=== PATIENT | male | born 1935 | race Caucasian/White ===

== ENCOUNTER 2018-06-18 05:50 | Inpatient (IN) | payer MEDICARE, OTHER, SELFPAY ==
[2018-06-12 09:48] VITALS: BMI 29.2
[2018-06-18] VITALS (16 sets, daily range): BP systolic 114–166; BP diastolic 47–87; PULSE 76–109; RESP 8–18; TEMP 36.3–37.4; O2SAT 92–98; BMI 28.0
[2018-06-18] MEDS: LACTATED RINGERS 1,000 ML 42 ML IV ×2 (07:10→09:45)
--- NOTE | 2018-06-18 07:26 | PM.PREOP ---
Pre-operative Note Interval Note History & Physical reviewed/Exam performed by Physician: Yes Changes to H&P: No
--- NOTE | 2018-06-18 07:28 | PM.OP.1 ---
Operative Date/Time/Diagnoses Date of procedure: 06/18/18 Time of procedure: 11:35 Pre-op diagnosis: Lumbar stenosis with radiculopathy Lumbar scoliosis Post-op diagnosis: same Procedure & Clinicians Procedure: L4-5, L5S1 TLIF (post/post interbody fusion) with cages L4, L5, S1 screws icbg aspirate L45, L5S1 laminectomies use of microscope placement of epidural catheter Same procedure as scheduled: Yes Indications: [age] year old male with intractable pain from stenosis. They had failed conservative management and requested operative intervention. Risks and benefits of surgery were discussed and appropriate consents were obtained. Surgeon: Chris Calabrese [employer] Technician: Ashely Larson Anesthesia Type: General Operative Notes Findings: None Closure Type: primary Specimen(s): none sent Prosthetic devices, grafts, tissues, transplants, or devices: NuVasive MAS reline screws Globus Rise cage Applied: catheter Estimated Blood Loss (mL): 50 Procedure in detail: The patient was brought to the operating room and intubated on the table. A time-out was performed. They were then rolled over to the well-padded Miguel Angel table in the prone position. Preoperative antibiotics were given. The back was prepped and draped in the standard sterile fashion. Using fluoroscopy, a 5 cm longitudinal incision was made to the right of the midline. We used Bovie to come down to and split the lumbodorsal fascia. Using fluoroscopy and monitoring, we then percutaneously placed Jamshidi needles down the pedicles of L4, L5, and S1 on the right side. These were changed out to guidewires and then we tapped and then placed the NuVasive MAS Reline screw shanks. We then opened up the retractors at L5 and S1 and used Bovie to clear up the posterolateral gutter as well as medially along the lamina to the spinous processes. A bur was used to decorticate the transverse processes. We brought in the microscope. Using a combination of bur and Kerrison rongeurs, a L5-S1 laminectomy was performed from the right side. We cleared over past the midline and carefully depressed the dura until we were able to decompress the opposite side. We cleared out the neural foramen, which required a near complete facetectomy. This completed the laminectomy at L5-S1. We then began the TLIF prep. A complete facetectomy was performed on this side at L5-S1. We carefully cleaned up the remainder of the foramen until we could easily retract the exiting root as well as clearing medially below the dura and expose the disc space. The disc was prepped with bipolar and then an annulotomy was performed. We performed a diskectomy using a combination of paddles, david, pituitaries, and curettes. We distracted the disc using a paddle and locked the retractor in an open position. We then filled the disc space with Osteocel bone graft. We then placed the globus Rise cage under fluoroscopy and then filled this in with more bone graft. The distraction on the retractor was released to compress down. This completed the posterior interbody fusion portion of the TLIF at L5-S1. We then took off our retractor blade at S1 and moved to L4. We opened up the retractor and cleared out the gutter as well as medially to expose the lamina. The L4 transverse process was also decorticated with a bur. We then used a bur and Kerrison rongeur to perform a right-sided laminectomy at L4-5. We reached across carefully depress the dura and cleared past the midline. We cleared out the foramen, which required a near complete facetectomy. As we worked around the facet, it appeared that we propagated a fracture line that went down into the L5 pedicle. We checked around all the way with a ball probe and it did not seem to come out through the other side and was contained. We then began the interbody work. The dura was carefully retracted. The disc was prepped with bipolar. We then performed an annulotomy. Complete diskectomy was performed at L4-5 with David, paddles, pituitaries, curets. We filled the disc space with bone graft. We then placed and expanded the globus Rise cage under fluoroscopy. More bone graft was packed around this. The distraction on the retractors was released. this completed the posterior interbody portion of the TLIF at L45. We then placed the screw heads, analia, and locked down the set screws. The wound was copiously irrigated. A small stab incision was made over the PSIS. We used a Jamshidi needle to aspirate several mL of bone marrow from the pelvis. This was mixed with the remaining Osteocel and combined with all of the locally harvested bone graft and placed in the posterolateral gutter for the posterior fusion of the TLIF at L4-5 and L5-S1. An epidural catheter was then placed in the spinal canal by carefully depressing the dura and advancing it 6 cm cephalad under the remaining lamina without resistance. The muscle fascia was closed. The catheter was then injected with a solution containing 4 mL of 0.5% Marcaine, 1 mg Stadol, 4 mg Duramorph, and 100 mcg of fentanyl. This was injected without resistance and the catheter was pulled. We then went to the opposite side. Again using fluoroscopy, a 3 cm incision was made and Bovie was used to come down to split the fascia. Using neural monitoring and fluoroscopy, Jamshidi needles were advanced down the pedicles of L4, L5, and S1 on the left side. These were switched over guidewires, tapped, and screws placed. We then placed a analia and locked the set screws on this side. The wound was irrigated. The fascia was closed. Vancomycin powder was placed in the wounds. The superficial and skin were closed. A sterile dressing was placed. The patient was then rolled over extubated and brought to recovery room without complications. Complications: none Condition: stable Disposition: PACU Plan for aftercare: Inpatient. Up with therapy.
[2018-06-18] MEDS: CEFAZOLIN 2 GM/100 ML FROZ.PIGGY IV ×2 (07:45→15:48)
--- NOTE | 2018-06-18 08:21 | SUR.OPER ---
Prone on spine table, head in foam head support, padded chest and pelvic supports, gel pad at knees, lower legs supported by pillows; nipples, genitalia and toes free of pressure, arms secured on foam padded arm boards at <90 degrees abduction. Tape over blanket at thigh secured to table.
[2018-06-18] MEDS: THROMBIN (RECOMBINANT) 5,000 UNIT VIAL 5000 UNIT TOP (08:29)
[2018-06-18] MEDS: SODIUM CHLORIDE 0.9% 1,000 ML, GENTAMICIN 80 MG IRR ×2 (08:30→08:31)
[2018-06-18] MEDS: VANCOMYCIN 1,000 MG VIAL 1000 MG TOP (08:30)
[2018-06-18] MEDS: BUPIVACAINE 0.5% (PF) 4 ML, MORPHINE-PF 4 MG, BUTORPHANOL 1 MG, fentaNYL 100 MCG INJ (08:32)
--- NOTE | 2018-06-18 11:39 | DI.RAD.S_ITS ---
PROCEDURE: XR LUMBAR SPINE 2-3V INDICATIONS: L4-5, L5-S1 TLIF TECHNIQUE: 2 views of the lumbar spine were acquired. COMPARISON: None. FINDINGS: Two intraoperative fluoroscopy images demonstrate discectomy and posterior fusion at L4-L5 and L5-S1. IMPRESSION: Discectomy and posterior fusion at L4-L5 and L5-S1. Dictated by: Russel Montejo M.D. on 06/18/2018 at 14:41 Approved by: Russel Montejo M.D. on 06/18/2018 at 14:42
[2018-06-18] MEDS: fentaNYL 100 MCG/2 ML INJ 50 MCG IV ×2 (12:06→12:17)
[2018-06-18] MEDS: ONDANSETRON 4 MG/2 ML INJ IV ×2 (12:35→18:25)
--- NOTE | 2018-06-18 12:44 | SUR.PHASEI ---
Report called to [facility]
--- NOTE | 2018-06-18 12:49 | SUR.PHASEI ---
Pt transferred to the floor with belongings bag and o2 monitor by Stacie.
[2018-06-18] MEDS: LACTATED RINGERS 1,000 ML 125 ML IV ×2 (14:04→22:36)
[2018-06-18] MEDS: METOCLOPRAMIDE 10 MG/2 ML INJ IV (15:53)
--- NOTE | 2018-06-18 16:39 | PT.IPTN ---
Current Diagnoses Spondylolisthesis, lumbar region (06/18/18) Spinal stenosis, lumbar region with neurogenic claudication (06/18/18) Surgery Performed Operation Date: 06/18/18 07:45 Actual Procedures p L4-5 & L5-S1 laminectomy and posterior instrumented fusion w/bone graft - Chris Calabrese MD Physical Therapy Treatment Note M3 PT-IP Subjective Start: 06/18/18 16:31 Freq: NEEDED Status: Active Protocol: Document 06/18/18 16:31 AB (Rec: 06/18/18 16:39 AB [id number]) Subjective Physical Therapy Visit Type Notes attempted eval and got PLOF and home set up information. pt then felt nauseated and wants to wait for a few minutes. nurse gave pt meds for nausea. checked on pt again after ~ 30 min and pt initially agreed to do PT. while preparing to mobilize pt , pt stated that he felt nauseated again and wants to hold off on PT eval. Will f/u tomorrow.
[2018-06-18] MEDS: GABAPENTIN 300 MG CAPSULE PO (21:14)
[2018-06-18] MEDS: DOCUSATE 100 MG CAPSULE PO (21:14)
[2018-06-18] MEDS: SENNOSIDES 8.6 MG TABLET 17.2 MG PO (21:15)
[2018-06-18] MEDS: CELECOXIB 200 MG CAPSULE PO (21:15)
--- NOTE | 2018-06-18 23:43 | PC.NURSE ---
marge shift- assumed care of pt from outgoing shift at 1500 this day. PT awake and alert. Pt uses call espinoza. pt has family at bedside. still nauseated upon arrival. but does better if he can just sleep. pt slept for a while. got up tried to work with pt as he was feeling better and then became nauseated again. given prns as charted. will continue to monitor. after a few hours pt felt better. given some snacks. and evening meds. pt moves self in bed frequently. drinking water. belongings and call light within reach. will continue to monitor pt for safety.
[2018-06-19] MEDS: CEFAZOLIN 2 GM/100 ML FROZ.PIGGY IV
[2018-06-19 05:55] VITALS: BP 109/58; PULSE 89; RESP 16; TEMP 37.7; O2SAT 95
--- NOTE | 2018-06-19 06:49 | PM.PNPO.1 ---
Subjective Date Patient Seen: 06/19/18 Time Patient Seen: 06:49 Interval history: He is doing great. 0 pain Exam Vital Signs (past 8 hours): - 06/18/18 23:20 06/19/18 05:55 Temperature 99.0 F 99.9 F H Pulse Rate 102 H 89 Respiratory Rate 16 16 Blood Pressure 120/59 L 109/58 L Pulse Oximetry 95 95 Oxygen Delivery Method Room Air Oxygen Flow Rate 0 Const Orientation: alert and oriented x3 Back/Spine/Pelvis Other: Mild dry drainage about 3 cm in size. 5/5 motor both lower extremities Assessment & Plan Post-op Postoperative Procedures Operation Date: 06/18/18 07:45 Actual Procedures Side Surgeon p L4-5 & L5-S1 laminectomy and posterior instrumented fusion w/bone graft Chris Calabrese MD overall he is doing great. We will mobilize with physical therapy today. He feels like he may be able to go home later and this could be an option.
[2018-06-19 07:20] LABS: Hematocrit 38.9 % (41-53); Hemoglobin 13.4 g/dL (13.5-17.5)
[2018-06-19 09:00] VITALS: BP 114/63; PULSE 87; RESP 18; TEMP 37.1; O2SAT 94
--- NOTE | 2018-06-19 09:00 | PT.IIE ---
Current Diagnoses Spondylolisthesis, lumbar region (06/18/18) Spinal stenosis, lumbar region with neurogenic claudication (06/18/18) Surgery Performed Operation Date: 06/18/18 07:45 Actual Procedures p L4-5 & L5-S1 laminectomy and posterior instrumented fusion w/bone graft - Chris Calabrese MD Surgical History (Last Updated 06/12/18 @ 10:01 by Monica Jones, RN) History of arthroplasty of left shoulder (Acute ~2014) Hx of left inguinal hernia repair (Acute ~01/1991) Hx of tonsillectomy (Acute) Medical History (Last Updated 06/12/18 @ 10:04 by Monica Jones RN) Actinic keratosis (Acute) Anxiety (Acute) BPH (benign prostatic hyperplasia) (Acute) Chronic low back pain (Acute) DVT (deep venous thrombosis) (Acute ~2015) Depression (Acute) Former smoker (Acute) GERD (gastroesophageal reflux disease) (Acute) GI bleed (Acute) Gynecomastia (Acute) Heart palpitations (Acute ~2013) IBS (irritable bowel syndrome) (Acute) Insomnia (Acute) Osteoarthritis (Acute) Plantar fasciitis of left foot (Acute) Pneumonia (Acute) Physical Therapy Inpatient Evaluation/Re-Eval M1 PT/OT-IP Prior Functional Status Start: 06/18/18 16:31 Freq: NEEDED Status: Active Protocol: Document 06/19/18 09:00 AB (Rec: 06/19/18 12:51 AB [id number]) Medical Review Prior Functional Status Medical History Reviewed Yes Communication able to make needs known Mobility and Gait pt stated that he is independent with all mobilities and ambulation without AD Social History Household Members none Living Arrangements House Number of Floors (Floors) Two Floors Number of Stairs To Enter/Railing? has 1 step to enter 6 steps B rails +landing+6 steps B rails to get to bedroom level Home Environment High Toilet Tub/Shower Home Equipment Hand Held Shower Grab Bars Near Toilet Grab Bars In Shower Additional Social History Comment pt has a standard walker M2 PT-IP Current Condition Start: 06/18/18 16:31 Freq: NEEDED Status: Active Protocol: Document 06/19/18 09:00 AB (Rec: 06/19/18 12:51 AB [id number]) Physical Therapy Current Condition Current Condition Evaluation Date 06/19/18 Treatment Diagnosis s/p L4-5, L5S1 TLIF/lami; difficulty in walking Onset Date 06/18/18 Precautions Lumbar Precautions Log Roll No Twisting Limit Bending Lifting Restriction of 10 lbs Gait Belt above Incisional Area M3 PT-IP Subjective Start: 06/18/18 16:31 Freq: NEEDED Status: Active Protocol: Document 06/19/18 09:00 AB (Rec: 06/19/18 12:51 AB [id number]) Subjective Physical Therapy Visit Type Type Initial Evaluation Visit Start Time 09:00 Visit Stop Time 09:40 Total Visit Minutes 40 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 of 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 0 Physical Therapy Visit Comments Patient Comments pt agreeable to do PT Therapy Pain Assessment Pain When Pain Assessed At Rest Pain Present Pain Present Pain Reported Location Back Intensity 2 Scale Used Numeric (1 - 10) Pain Management Techniques Timing of Activity with Medications M4 PT-IP Mobility and Gait Start: 06/18/18 16:31 Freq: NEEDED Status: Active Protocol: Document 06/19/18 09:00 AB (Rec: 06/19/18 12:51 AB [id number]) PT-Bed Mobility Assessment Rolling Type of Rolling Log Rolling Level of Assist Standby Assistance Supine to Sit Supine to Sit Standby Assistance Sit to Supine Sit to Supine Standby Assistance Scooting Scooting to Edge of Bed Standby Assistance PT-Transfer Assessment Sit to and From Stand Sit to and from Stand Standby Assistance Equipment Transfer Assistive Device Gait Belt Front Wheeled Walker Orthotic/Prosthetic Devices or Brace: No Transfers Transfer Destination Chair Transfer Technique Stand Step Pivot Transfer Ability Level of Assist Standby Assistance Comments Mobility Comments pt completed log roll bed mobility x 2 sets SBA initially requiring cues to complete but able to complete without cues afterwards. Gait Assessment Gait Gait Assistance Required: Standby Assistance Distance (Feet) 200 Able to Maintain Weight Bearing Status Yes During Gait Assistive Devices Assistive Device Gait Belt Front Wheeled Walker Orthotic/Prosthetic Devices or Brace: No Gait Deviations General Gait Pattern Decreased Stride Length Factors Limiting Gait Function Factors Limiting Gait Function Decreased Strength Limited Range of Motion Pain Poor Balance Stair Climbing Assessment Evaluation Level of Assist On Stairs Standby Assistance Contact Guard Assistance Devices Stair Climbing Assistive Devices None Left Railing Right Railing Technique/Endurance Stair Climbing Direction Ascend and Descend Stair Climbing Technique Step Over Step Number of Steps Climbed 3 Query Text: Stair Climbing Set # Repetitions (reps) 2 Comments Stair Climbing Comments pt completed up/down platform steps x 2 reps SBA to CGA using FWW completed up/down 3 steps using bilateral rails x 2 sets SBA PT-Balance Assessment Sitting Balance and Reactions Static Sitting Balance Ability Good Dynamic Sitting Balance Ability Good Standing Balance and Reactions Static Standing Balance Ability Fair Dynamic Standing Balance Ability Fair Device Used FWW M5 PT-IP Objective Assessments Start: 06/18/18 16:31 Freq: NEEDED Status: Active Protocol: Document 06/19/18 09:00 AB (Rec: 06/19/18 12:51 AB [id number]) Orientation Orientation/Cognition Level of Alertness Alert Orientation Name Age Place Situation Safety Awareness Understands Safety Issues Gross Range of Motion Lower Extremity ROM Assessment Within Functional Limits Strength Lower Extremity Strength Assessment Within Functional Limits Coordination Assessment Gross Coordination Gross Coordination WNL Muscle Tone Muscle Tone WNL Yes M6 PT-IP Treatment Start: 06/18/18 16:31 Freq: NEEDED Status: Active Protocol: Document 06/19/18 09:00 AB (Rec: 06/19/18 12:51 AB [id number]) Physical Therapy Treatment Education Education Provided Precautions Weight Bearing Status Post-Op Packet Safety M7 PT-IP Assessment and Plan Start: 06/18/18 16:31 Freq: NEEDED Status: Active Protocol: Document 06/19/18 09:00 AB (Rec: 06/19/18 12:51 AB [id number]) PT Summary Assessment and Plan Potential Rehabilitation Potential Good Status of Condition at Evaluation Stable Summary Impairments Pain ROM Strength Balance Coordination Bed Mobility Transfers Gait Activity Tolerance Assessment Summary pt requiring SBA to CGA with mobility. pt plans to go home and daughter will assist pt at home. pt has a standard walker at home but stated that he will be able to borrow one . Goals Bed Mobility Goal Independent Transfer Goal Independent Front Wheeled Walker Gait Goal Independent Front Wheel Walker Gait Distance 250 Other Goals up/down 1 step using FWW SBA up/down 3 steps using bilateral rails mod I Days to Meet Goals 3 Frequency of Treatment Frequency Of Treatment Twice a Day Treatment Plan Physical Therapy Treatment Plan Bed Mobility Training Transfer Training Gait Training Therapeutic Exercise Balance Retraining Post Op Education Discharge Planning Hot or Cold Pack Neuromuscular Re-ed Coordination Retraining Manual Therapy Other Recommendations and Next Treatment ambulation, stair climbing Focus Recommendations To Nursing Amount of Assist Needed 1 Person Assist Discharge Recommendations PT Discharge Recommendations Home with Assistance Equipment Needed for Home Before FWW: pt will be able to borrow Discharge one from [facility]
[2018-06-19] MEDS: DOCUSATE 100 MG CAPSULE PO ×2 (09:14→22:05)
[2018-06-19] MEDS: TAMSULOSIN 0.4 MG CAPSULE PO (09:14)
[2018-06-19] MEDS: ASPIRIN EC 81 MG TABLET PO (09:14)
[2018-06-19] MEDS: FINASTERIDE 5 MG TABLET PO (09:14)
[2018-06-19] MEDS: CELECOXIB 200 MG CAPSULE PO ×2 (09:14→22:04)
--- NOTE | 2018-06-19 11:32 | OT.IP.EVAL ---
Current Diagnoses Spondylolisthesis, lumbar region (06/18/18) Spinal stenosis, lumbar region with neurogenic claudication (06/18/18) Surgery Performed Operation Date: 06/18/18 07:45 Actual Procedures p L4-5 & L5-S1 laminectomy and posterior instrumented fusion w/bone graft - Chris Calabrese MD Past Medical History (Last Updated 06/12/18 @ 10:04 by Monica Jones RN) Actinic keratosis (Acute) Anxiety (Acute) BPH (benign prostatic hyperplasia) (Acute) Chronic low back pain (Acute) DVT (deep venous thrombosis) (Acute ~2016) Depression (Acute) Former smoker (Acute) GERD (gastroesophageal reflux disease) (Acute) GI bleed (Acute) Gynecomastia (Acute) Heart palpitations (Acute ~2013) IBS (irritable bowel syndrome) (Acute) Insomnia (Acute) Osteoarthritis (Acute) Plantar fasciitis of left foot (Acute) Pneumonia (Acute) Surgical History (Last Updated 06/12/18 @ 10:01 by Monica Jones RN) History of arthroplasty of left shoulder (Acute ~2014) Hx of left inguinal hernia repair (Acute ~01/1991) Hx of tonsillectomy (Acute) Occupational Therapy Inpatient Evaluation/Re-Eval M1 PT/OT-IP Prior Functional Status Start: 06/18/18 16:31 Freq: NEEDED Status: Active Protocol: Document 06/19/18 11:32 DARBY (Rec: 06/19/18 15:06 DARBY [id number]) Medical Review Prior Functional Status Medical History Reviewed Yes Diet/Fluid Consistency Regular Communication WNL Mobility and Gait Pt states that he is independent with all mobilities and ambulation without AD. Activities of Daily Living and IADL's Pt states he is independent with all self care, IADLS, drives. Prior Functional Level (Other details) Pt active and enjoys golfing. Social History Household Members none Living Arrangements House Number of Floors (Floors) Two Floors Number of Stairs To Enter/Railing? has 1 step to enter 6 steps B rails +landing+6 steps B rails to get to bedroom level Home Environment Standard Height Toilet Tub/Shower Home Equipment Front Wheel Walker Bedside Commode Shower Seat with Backrest Hand Held Shower Long Handled Sponge Long Handled Shoe Horn Shuttler Grab Bars Near Toilet Grab Bars In Shower Employment Status Retired Additional Social History Comment Pt plans to borrow FWW, shower chair and has BSC for use over toilet. His daughter is obtaining assisted living manager for him. Pt has 2 supportive daughters. One daughter will stay with him as long as needed. M2 OT-IP Current Condition Start: 06/19/18 14:52 Freq: Status: Active Protocol: Document 06/19/18 11:32 PJM (Rec: 06/19/18 15:06 PJM [email or web address]) Occupational Therapy Current Condition Current Condition Evaluation Date 06/19/18 Treatment Diagnosis decreased self care, functional mobility s/p l4-s1 PLIF Diagnosis Onset Date 06/18/18 Post Operative Precautions Lumbar Precautions Log Roll No Twisting Limit Bending Lifting Restriction of 10 lbs Gait Belt above Incisional Area M3 OT- IP Subjective and Pain Start: 06/19/18 14:52 Freq: Status: Active Protocol: Document 06/19/18 11:32 PJM (Rec: 06/19/18 15:06 PJM [email or web address]) OT- Subjective Occupational Therapy Visit Type Type Initial Evaluation Visit Start Time 10:46 Visit Stop Time 11:32 Total Visit Minutes 46 Notes Pt's daughter here for second half of session for education. Occupational Therapy Visit Comments Patient Comments I am not having much pain at all. Patient/Caregiver Goals to go home and see his dog and be able to golf OT Pain Assessment Pain When Pain Assessed After Treatment Pain Present Pain Present Pain Reported Location Back Intensity 1 Scale Used Numeric (1 - 10) Description Aching M4 OT- IP ADL's Start: 06/19/18 14:52 Freq: Status: Active Protocol: Document 06/19/18 11:32 PJM (Rec: 06/19/18 15:06 PJ [id number]) OT [id number] General Evaluation Self-Feeding Ability Independent OT ADL-Grooming Comments OT Grooming Comments provided education re: body mechanics OT ADL-Oral Care Comments Oral Care Comments provided education re: body mechanics OT ADL-Dressing Assistive Devices Dressing Assistive Devices Long Handled Shoe Horn Shuttler Comments OT Dressing Comments began education re: use of assisted living manager to doff socks and wide sock aid to don socks. Pt declines sock aid and states daughter plans to assist him with this PRN. Pt has long shoe horn. OT ADL-Toileting General Evaluation Toileting Ability Total Assistance Areas Needing Assistance Empty Catheter or Colostomy Comments OT Toileting Comments pt still has edouard in place OT ADL-Bathing Comments OT Bathing Comments to be assessed M5 OT- IP IADL's Start: 06/19/18 14:52 Freq: Status: Active Protocol: Document 06/19/18 11:32 PJM (Rec: 06/19/18 15:06 PJM [email or web address]) OT-Instrumental Activities of Daily Living Deficits IADL Deficits Identified Deficits Home Safety Awareness Awareness of Need for Assistance at Home Good Awareness Ability to Problem Solve Emergency Able to Problem Solve Situations Medication Management Medication Management No Deficits Identified Money Management Money Management No Deficits Identified Meal Preparation Meal Preparation Caregiver Provides Assist Meal Preparation Comments daughter to assist until pt able Contact Lens Edge Buffer Contact Lens Edge Buffer Comments daughter to assist until pt able; provided education re: lifting restriction and body mechanics Driving Driving Caregiver Provides Assist Driving Comments daughter to assist until pt able M6 OT- IP Functional Cognition Start: 06/19/18 14:52 Freq: Status: Active Protocol: Document 06/19/18 11:32 PJM (Rec: 06/19/18 15:06 PJM [email or web address]) Cognitive Factors Limiting Selfcare Function Cognitive Ability Level of Alertness Alert Patient Orientation Name Age Birthday Month Date Year Day of Week Place Situation Attention Span Ability Capable of Focused Attention Capable of Sustained Attention Ability to Follow Commands Able to Follow One Step Commands Able to Follow Multi-Step Commands Memory Description No Deficits Noted Safety Awareness No Deficits Noted Executive Function Ability No Deficits Noted Cognitive Comments Cognitive Assessment Comments appears WNL for age OT- Vision and Hearing OT- Hearing Assessment OT- Hearing Assessment WFL OT- Vision Assessment Visual Acuity WFL M7 OT- IP Mobility and Balance Start: 06/19/18 14:52 Freq: Status: Active Protocol: Document 06/19/18 11:32 PJM (Rec: 06/19/18 15:06 PJ [email or web address]) OT-Transfer Assessment Comments Mobility Comments pt seen up in chair, see P.T. notes OT- Gait Assessment Comments Gait Ability Comments see P.T. notes OT- Balance Assessment Comments Other Balance Tests/Deviations/Treatment see P.T. notes : M8 OT- IP Objective Assessments Start: 06/19/18 14:52 Freq: Status: Active Protocol: Document 06/19/18 11:32 PJM (Rec: 06/19/18 15:06 PJM [email or web address]) OT Gross Range of Motion Upper Extremity Range of Motion Assessment Within Functional Limits OT Strength Upper Extremity Strength Assessment Within Functional Limits Hand Upper Lining Cementer Strength Hand Dominance Right OT- Coordination Assessment Comments Coordination Comments BUE WFL OT-Muscle Tone Assessment Muscle Tone WNL Yes OT Sensation Assessment Comments Summary Comments Pt denies sensory deficits. M9 OT- IP Assessment and Plan Start: 06/19/18 14:52 Freq: Status: Active Protocol: Document 06/19/18 11:32 PJM (Rec: 06/19/18 15:06 PJM [email or web address]) OT Summary Assessment and Plan Potential Rehabilitation Potential Excellent Analytic Complexity at Evaluation Low Summary OT Impairments Functional Mobility Dressing Toileting Bathing Toilet Transfers Shower Transfers Assessment Summary Low complexity OT assessment completed with emphasis on self care skills within new lumbar spine precautions on this 83 yr old male s/p L4-S1 PLIF. Began education with pt/ daughter re: lumbar precautions, body mechanics, sitting posture, adapted ADL techniques. Pt still has edouard in place. Plan 1 additional OT visit in AM for showering and dressing practice. Pt plans to d/c home with live in assist from supportive daughter for as long as needed. Goals Grooming Goal Independent Dressing Goal Minimal Assistance Toileting Goal Independent Bathing Goal Standby Assistance Toilet Transfer Goal Independent Shower Transfer Goal Standby Assistance Patient/Caregiver Education Goal Demonstrate Post-Op Precautions Demonstrate Energy Conservation and Pacing Caregiver Independent Assisting Patient Days to Meet Goals 2 Frequency of Treatment Frequency Of Treatment Once a Day Treatment Plan OT Treatment Plan ADL Training Functional Mobility Patient/Family Education Discharge Planning Discharge Recommendations OT Discharge Recommendations Home with 18/09 Assist
--- NOTE | 2018-06-19 13:58 | PT.IPTN ---
Current Diagnoses Spondylolisthesis, lumbar region (06/18/18) Spinal stenosis, lumbar region with neurogenic claudication (06/18/18) Surgery Performed Operation Date: 06/18/18 07:45 Actual Procedures p L4-5 & L5-S1 laminectomy and posterior instrumented fusion w/bone graft - Chris Calabrese MD Physical Therapy Treatment Note M2 PT-IP Current Condition Start: 06/18/18 16:31 Freq: NEEDED Status: Active Protocol: Document 06/19/18 09:00 AB (Rec: 06/19/18 12:51 AB [id number]) Physical Therapy Current Condition Current Condition Evaluation Date 06/19/18 Treatment Diagnosis s/p L4-5, L5S1 TLIF/lami; difficulty in walking Onset Date 06/18/18 Precautions Lumbar Precautions Log Roll No Twisting Limit Bending Lifting Restriction of 10 lbs Gait Belt above Incisional Area M3 PT-IP Subjective Start: 06/18/18 16:31 Freq: NEEDED Status: Active Protocol: Document 06/19/18 13:48 SA (Rec: 06/19/18 13:58 [id number]) Subjective Physical Therapy Visit Type Type Treatment Note Visit Start Time 13:28 Visit Stop Time 13:46 Total Visit Minutes 18 Notes Pt sitting up in chair, family present. Number of CAN CLEANER Visits 1 Physical Therapy Visit Comments Patient Comments Pt agreeable to PT. Patient Goals To d/c home toing. Daughter to stay with patient for first few days. Therapy Pain Assessment Pain When Pain Assessed During Mobility Pain Present Pain Present Pain Reported Location Back Intensity 2 Scale Used Numeric (1 - 10) Pain Management Techniques Timing of Activity with Medications M4 PT-IP Mobility and Gait Start: 06/18/18 16:31 Freq: NEEDED Status: Active Protocol: Document 06/19/18 13:48 SA (Rec: 06/19/18 13:58 [id number]) PT-Bed Mobility Assessment Rolling Type of Rolling Log Rolling Level of Assist Standby Assistance Supine to Sit Supine to Sit Standby Assistance Sit to Supine Sit to Supine Standby Assistance Scooting Scooting to Edge of Bed Standby Assistance PT-Transfer Assessment Sit to and From Stand Sit to and from Stand Standby Assistance Equipment Transfer Assistive Device Gait Belt Front Wheeled Walker Orthotic/Prosthetic Devices or Brace: No Transfers Transfer Destination Chair Transfer Technique Stand Step Pivot Transfer Ability Level of Assist Standby Assistance Comments Mobility Comments Verbal and visual review of spinal precautions, pt understands and was able to recite. Pt can perfrom log roll technique without cues and SBA. Gait Assessment Gait Gait Assistance Required: Standby Assistance Distance (Feet) 220 Able to Maintain Weight Bearing Status Yes During Gait Assistive Devices Assistive Device Gait Belt Front Wheeled Walker Orthotic/Prosthetic Devices or Brace: No Gait Deviations General Gait Pattern Decreased Stride Length Factors Limiting Gait Function Factors Limiting Gait Function Decreased Strength Limited Range of Motion Comments Gait Comments Gait training in halls with FWW and SBA, pt with good posture, manages FWW well, no LOB and able to increase step length with cues. Stair Climbing Assessment Evaluation Level of Assist On Stairs Standby Assistance Devices Stair Climbing Assistive Devices None Left Railing Right Railing Technique/Endurance Stair Climbing Direction Ascend and Descend Stair Climbing Technique Step Over Step Number of Steps Climbed 3 Query Text: Stair Climbing Set # Repetitions (reps) 4 Comments Stair Climbing Comments Pt completed stair climb for 12 steps in a row with SBA and step through gait pattern, no LOB and no cues required for safety. Pt has B rails at home PT-Balance Assessment Sitting Balance and Reactions Static Sitting Balance Ability Good Dynamic Sitting Balance Ability Good Standing Balance and Reactions Device Used FWW M5 PT-IP Objective Assessments Start: 06/18/18 16:31 Freq: NEEDED Status: Active Protocol: Document 06/19/18 09:00 AB (Rec: 06/19/18 12:51 AB [id number]) Orientation Orientation/Cognition Level of Alertness Alert Orientation Name Age Place Situation Safety Awareness Understands Safety Issues Gross Range of Motion Lower Extremity ROM Assessment Within Functional Limits Strength Lower Extremity Strength Assessment Within Functional Limits Coordination Assessment Gross Coordination Gross Coordination WNL Muscle Tone Muscle Tone WNL Yes M6 PT-IP Treatment Start: 06/18/18 16:31 Freq: NEEDED Status: Active Protocol: Document 06/19/18 13:48 SA (Rec: 06/19/18 13:58 SA [id number]) Physical Therapy Treatment Exercises Exercises Ankle Pumps Gluteal Sets Education Education Provided Precautions Weight Bearing Status Post-Op Packet Safety M7 PT-IP Assessment and Plan Start: 06/18/18 16:31 Freq: NEEDED Status: Active Protocol: Document 06/19/18 13:48 SA (Rec: 06/19/18 13:58 [id number]) PT Summary Assessment and Plan Potential Rehabilitation Potential Good Status of Condition at Evaluation Stable Summary Impairments Pain ROM Strength Balance Coordination Bed Mobility Transfers Gait Activity Tolerance Progress Towards Goals Progressing Toward Goals Assessment Summary Pt progressing well toward goals, SBA with all mobilities and able to maintain spinal precautions. Has FWW and elevated toilet seat at home, friend just purchased shower chair so no equipment needs at this time. Anticipate d/c home with daughter jenny. Frequency of Treatment Frequency Of Treatment Twice a Day Treatment Plan Physical Therapy Treatment Plan Bed Mobility Training Transfer Training Gait Training Therapeutic Exercise Balance Retraining Post Op Education Discharge Planning Hot or Cold Pack Neuromuscular Re-ed Coordination Retraining Manual Therapy Recommendations To Nursing Amount of Assist Needed 1 Person Assist Discharge Recommendations PT Discharge Recommendations Home with Assistance Equipment Needed for Home Before Obtained FWW and shower chair Discharge
[2018-06-19 14:10] VITALS: BP 103/56; PULSE 89; RESP 16; TEMP 36.7
[2018-06-19 14:53] VITALS: BP 122/61
--- NOTE | 2018-06-19 15:25 | CM.DANOTE ---
Discharge Planning/Care Management DCP: assessement: case received, EMR reviewed , discussed POC with OT Estee (who had just finishes session with pt) and then met with pt and his daughter Catrina. Introduced self and role. Pt is an 83 year old male who admitted yesterday for a planned spinal therapy. Payer: Medicare and [employer] IN[facility] admission status: confirmed by UR RN Oc. PT and OT have worked with pt today. Pt confirms that is planning to d/c to home tomorrow if he continues to do well. He has had trouble voiding and says I had hoped to go later today but my body is just not quite ready for that. He clarifies that his daughter Alondra will be staying with him for supportive assist as long as needed. Catrina says she will be the one to take her dad home to [place] but my sister Alondra does not work so she can stay with him 18/09. P: home as per above, likely tomorrow. Will follow prn. CM Discharge Assessment Start: 06/19/18 15:24 Freq: Status: Active Protocol: Document 06/19/18 15:25 ITV (Rec: 06/19/18 15:25 ITV [id number]) Discharge Planning Assessment Advance Directives? Yes History Provided By Patient Family Member Medical Record Prior Living Arrangements House Household Members none Independent with ADL's Yes Is patient alert and oriented? Yes Whiteboard Updated in Patient Room with Yes name and ext. # of Wild Oyster Harvester Review Status In Process Next Review Type Continued Stay Review Pre-Anesthesia Assessment Start: 06/12/18 09:48 Freq: Status: Complete Protocol: Document 06/12/18 09:48 CAB (Rec: 06/12/18 10:29 CAB [id number]) Pre-Anesthesia Assessment Patient Information Reviewed Via Phone Assessment Assessment Completed With Patient Diagnostic Results BMP/CMP CBC EKG Comment Outside labs/ECG 06/05/18 scanned to record Primary Care Provider Ruperto Lynn Medical Clearance Received Yes Seen Specialist in Last 12 Months Yes Specialist Seen Orthopedist Comment PCP clearance visit 06/05/18 scanned to record Primary Language Marshallese Electrician Sound Required No Height 179.07 cm Weight 93.894 kg Body Mass Index (BMI) 29.2 Hearing Ability Normal Visual Impairment No Limitations Visual Assist None Dentition Type Teeth, Natural Present Barriers to Learning None Other Aids No Hx Anesthesia Reactions No Hx Family Anesthesia Reaction No Hx Malignant Hyperthermia No Hx Blood Transfusions Yes: r/t GI Bleed 1995 Hx Blood Transfusion Reaction No Anesthesia Review Requested No Shirt Ironer No alcohol intake current alcohol intake frequency 0-2 drinks per day Smoking Status Former smoker how long ago did patient quit smoking Quit 1968 Substance Use Type does not use Pain Present Pain Reported Musculoskeletal Symptoms Back Pain Difficulty Walking Joint Pain Joint Stiffness Muscle Weakness Numbness Radiating Pain into Limb Tingling History of Falling (Recent or History of No ) Patient is completely paralyzed or No completely immobile Mental Status Oriented to own ability Is patient on oxygen? No Does patient have [place]/SOB No Hx Sleep Apnea No Currently Taking a Beta Matt No Can You Climb a Flight of Stairs Without Yes SOB Hx Chest Pain No Hx SOB No Hx Syncope or Dizziness No Anti-Coagulant Therapy Yes: Aspirin 81mg/daily LLE DVT approx 2016 per pt Has a Fur Coat Sewer No Cardiac Testing No Hx Pacemaker/ICD No Pacemaker Rep Required? No Cardiac Clearance Received Not Applicable Diet Type At Home Regular dysphagia No Genitourinary Symptoms Dribbling Bladder Pattern Frequency Hesitancy Nocturia Urgency Urinary Catheter Present No Hx Urinary Self Catheterization No Comment Bladder symptoms improved with tamsulosin Diabetes No Hx Drug Resistant Organism No Presence of External or Internal Medical Yes: Left shoulder prosthesis Devices Have you traveled outside the [facility] States in the last 30 days? Marital Status / Lives With none Prior Living Arrangements House Number of Floors (Floors) Two Floors Support System Child/Children Friend(s) Does the Patient Have Assistance After Yes Surgery Patient Discharge Plan Description Return Home Comment Daughter will live w/pt to assist w/care at discharge Feels Safe in Current Environment Yes Been Physically Hurt or Threatened By a No Person in Current Environment Do you have thoughts of harming yourself None or others? Are you currently considering suicide? No Do you have a plan to hurt yourself or No Plan others? Do You Have Any Spiritual Beliefs That No May Affect Your HC Choices? Do You Have Any Cultural Practices That No May Affect Your HC Choices? Spiritual Referral None Who Can We Speak to About Patient's Care Family, friends Identifying Code for Release of Patient Declines to issue Information Health Care Proxy/Next of Kin Catrina (daughter) Health Care Proxy Emergency Contact Name Catrina (daughter) Emergency Contact Advance Directives? Yes: Unknown whereabouts Requested Patient Bring Advanced Yes Directives DOS Power of Plant Engineer Yes Power of Plant Engineer Name Catrina (daughter) Power of Plant Engineer PAC Instructions Durable medical equipment Medications to take/avoid Nasal antibiotic No ETOH/petroleum product on skin DOS NPO Post-op transportation Pre-surgical wash Sturdy shoes/comfortable clothes Do not bring valuables and remove jewelry
[2018-06-19 15:30] VITALS: BP 130/56; PULSE 89; RESP 17; TEMP 36.5; O2SAT 98
--- NOTE | 2018-06-19 15:32 | PC.NURSE ---
1130- Pts edouard catheter taken out at 1130 and he has not voided yet. He has attempted. Will most likely go home tomorrow. Comforable and has refused pain medication as he has been comfortable.
[2018-06-19] MEDS: SENNOSIDES 8.6 MG TABLET 17.2 MG PO (22:05)
[2018-06-19] MEDS: GABAPENTIN 300 MG CAPSULE PO (22:05)
--- NOTE | 2018-06-19 22:24 | PC.NURSE ---
Pt unable to urinate. bladder scan 589cc. In and out cath had 760cc. lower back dressing changed at 1830. call light in reach. bed alarm active.
[2018-06-20 00:48] VITALS: BP 111/63; PULSE 86; RESP 18; TEMP 36.8; O2SAT 95
[2018-06-20 05:30] VITALS: BP 133/70; PULSE 90; RESP 18; TEMP 36.7; O2SAT 94
--- NOTE | 2018-06-20 05:30 | PC.NURSE ---
Pt voided 200cc of clear dark yellow urine at 0530. He was then bladder scanned for post-void residual and bladder scan showed 925mL. Pt is continuing to try to void this morning and up walking around his room. No complaints of pain. Both dressings to back are clean, dry, and intact
--- NOTE | 2018-06-20 08:00 | PM.PNPO.1 ---
Subjective Date Patient Seen: 06/20/18 Time Patient Seen: 08:00 Interval history: He is doing very well. Minimal pain. Not requiring narcotic medication. However, he was not able to urinate. He had to have a straight catheter last night. Exam Vital Signs (past 8 hours): - 06/20/18 00:48 06/20/18 05:30 Temperature 98.3 F 98.0 F Pulse Rate 86 90 Respiratory Rate 18 18 Blood Pressure 111/63 133/70 Pulse Oximetry 95 94 Oxygen Delivery Method Room Air Oxygen Flow Rate 0 Const Orientation: alert and oriented x3 Back/Spine/Pelvis Other: CDI. 5/5 motor both lower extremities Objective Labs Result Diagrams: 06/19/18 06:20 Assessment & Plan Post-op Postoperative Procedures Operation Date: 06/18/18 07:45 Actual Procedures Side Surgeon p L4-5 & L5-S1 laminectomy and posterior instrumented fusion w/bone graft Chris Calabrese MD He is doing well. If he can urinate today successfully then he can go home.
[2018-06-20] MEDS: TAMSULOSIN 0.4 MG CAPSULE PO (08:21)
[2018-06-20] MEDS: FINASTERIDE 5 MG TABLET PO (08:21)
[2018-06-20] MEDS: CELECOXIB 200 MG CAPSULE PO (08:21)
[2018-06-20] MEDS: DOCUSATE 100 MG CAPSULE PO (08:21)
[2018-06-20] MEDS: ASPIRIN EC 81 MG TABLET PO (08:21)
[2018-06-20 08:25] VITALS: BP 130/68; PULSE 86; RESP 19; TEMP 36.5; O2SAT 98
--- NOTE | 2018-06-20 10:34 | PC.NURSE ---
Addendum entered by Brandi Gunn 06/20/18 12:31: 1237 No more voiding since last scan. Scanned bladder: 547mL Original Note: Pt reported to have 925cc in his bladder this morning after voiding 200cc around 0545. Talked to about this and he was scanned again at 0745 and had 449cc in bladder. wanted us to give pt some time to void and states that if he unable to then we could in/out cath pt. He voided 150cc a couple of hours ago and then just went 50cc. He has been given his morning Proscar and flomax. Patient bladder scanned again after voiding 50 and had a total of 489 in bladder. Just talked to YELENA Goldman and she states to continue letting him void and see if he can empty his bladder. Pt denies any pain to back and his dressings x2 both cdi.
[2018-06-20 11:15] VITALS: BP 128/65; PULSE 95; RESP 18; TEMP 36.6; O2SAT 93
--- NOTE | 2018-06-20 12:47 | PT.IPTN ---
Current Diagnoses Spondylolisthesis, lumbar region (06/18/18) Spinal stenosis, lumbar region with neurogenic claudication (06/18/18) Surgery Performed Operation Date: 06/18/18 07:45 Actual Procedures p L4-5 & L5-S1 laminectomy and posterior instrumented fusion w/bone graft - Chris Calabrese MD Physical Therapy Treatment Note M2 PT-IP Current Condition Start: 06/18/18 16:31 Freq: NEEDED Status: Active Protocol: Document 06/19/18 09:00 AB (Rec: 06/19/18 12:51 AB [id number]) Physical Therapy Current Condition Current Condition Evaluation Date 06/19/18 Treatment Diagnosis s/p L4-5, L5S1 TLIF/lami; difficulty in walking Onset Date 06/18/18 Precautions Lumbar Precautions Log Roll No Twisting Limit Bending Lifting Restriction of 10 lbs Gait Belt above Incisional Area M3 PT-IP Subjective Start: 06/18/18 16:31 Freq: NEEDED Status: Active Protocol: Document 06/20/18 10:05 CLB (Rec: 06/20/18 12:47 CLB [email or web address]) Subjective Physical Therapy Visit Type Type Treatment Note Visit Start Time 10:05 Visit Stop Time 10:15 Total Visit Minutes 10 Notes Pt up in BR independently upon arrival. Daughter present. Number of CONE WINDER Visits 1 Physical Therapy Visit Comments Patient Comments Pt agreeable to ambulate in zaman and climb stairs. Therapy Pain Assessment Pain When Pain Assessed During Mobility Pain Present Pain Present Pain Reported Location Back Intensity 2 Scale Used Numeric (1 - 10) Pain Management Techniques Timing of Activity with Medications M4 PT-IP Mobility and Gait Start: 06/18/18 16:31 Freq: NEEDED Status: Active Protocol: Document 06/20/18 10:05 CLB (Rec: 06/20/18 12:47 CLB [email or web address]) PT-Transfer Assessment Sit to and From Stand Sit to and from Stand Standby Assistance Equipment Transfer Assistive Device Gait Belt Front Wheeled Walker Orthotic/Prosthetic Devices or Brace: No Transfers Transfer Destination Chair Transfer Technique Stand Step Pivot Transfer Ability Level of Assist Standby Assistance Comments Mobility Comments Pt recalled 3/3 back precautions. Gait Assessment Gait Gait Assistance Required: Standby Assistance Distance (Feet) 220 Able to Maintain Weight Bearing Status Yes During Gait Assistive Devices Assistive Device Gait Belt Front Wheeled Walker Orthotic/Prosthetic Devices or Brace: No Gait Deviations General Gait Pattern Decreased Stride Length Factors Limiting Gait Function Factors Limiting Gait Function Decreased Strength Limited Range of Motion Comments Gait Comments Pt ambulated in zaman with good posture and safety awareness. Stair Climbing Assessment Evaluation Level of Assist On Stairs Standby Assistance Devices Stair Climbing Assistive Devices Left Railing Right Railing Technique/Endurance Stair Climbing Direction Ascend and Descend Stair Climbing Technique Step Over Step Number of Steps Climbed 3 Query Text: Stair Climbing Set # Repetitions (reps) 4 Comments Stair Climbing Comments Pt able to climb 12 steps safely as pt has 12 steps with bilateral rails to get to room. M5 PT-IP Objective Assessments Start: 06/18/18 16:31 Freq: NEEDED Status: Active Protocol: Document 06/19/18 09:00 AB (Rec: 06/19/18 12:51 AB [id number]) Orientation Orientation/Cognition Level of Alertness Alert Orientation Name Age Place Situation Safety Awareness Understands Safety Issues Gross Range of Motion Lower Extremity ROM Assessment Within Functional Limits Strength Lower Extremity Strength Assessment Within Functional Limits Coordination Assessment Gross Coordination Gross Coordination WNL Muscle Tone Muscle Tone WNL Yes M6 PT-IP Treatment Start: 06/18/18 16:31 Freq: NEEDED Status: Active Protocol: Document 06/19/18 13:48 SA (Rec: 06/19/18 13:58 SA [id number]) Physical Therapy Treatment Exercises Exercises Ankle Pumps Gluteal Sets Education Education Provided Precautions Weight Bearing Status Post-Op Packet Safety M7 PT-IP Assessment and Plan Start: 06/18/18 16:31 Freq: NEEDED Status: Active Protocol: Document 06/20/18 10:05 CLB (Rec: 06/20/18 12:47 CLB [email or web address]) PT Summary Assessment and Plan Summary Impairments Pain ROM Strength Balance Coordination Bed Mobility Transfers Gait Activity Tolerance Assessment Summary Pt has been up in room and ambulating in zaman with daughter. Pt is SBA for sit- stand and able to follow precautions with all mobility. Pt able to climb stairs and ambulate SBA w/FWW with good safety awareness. Goals Bed Mobility Goal Independent Transfer Goal Independent Front Wheeled Walker Gait Goal Independent Front Wheel Walker Gait Distance 250 Other Goals up/down 1 step using FWW SBA up/down 3 steps using bilateral rails mod I Days to Meet Goals 3 Frequency of Treatment Frequency Of Treatment Twice a Day Treatment Plan Physical Therapy Treatment Plan Bed Mobility Training Transfer Training Gait Training Therapeutic Exercise Balance Retraining Post Op Education Discharge Planning Hot or Cold Pack Neuromuscular Re-ed Coordination Retraining Manual Therapy Recommendations To Nursing Amount of Assist Needed 1 Person Assist Discharge Recommendations PT Discharge Recommendations Home with Assistance Equipment Needed for Home Before Obtained FWW and shower chair Discharge
--- NOTE | 2018-06-20 13:35 | OT.IP.TRT ---
Current Diagnoses Spondylolisthesis, lumbar region (06/18/18) Spinal stenosis, lumbar region with neurogenic claudication (06/18/18) Surgery Performed Operation Date: 06/18/18 07:45 Actual Procedures p L4-5 & L5-S1 laminectomy and posterior instrumented fusion w/bone graft - Chris Calabrese MD Occupational Therapy Treatment Note M3 OT- IP Subjective and Pain Start: 06/19/18 14:52 Freq: Status: Active Protocol: Document 06/20/18 13:35 PJM (Rec: 06/20/18 17:04 PJM [id number]) OT- Subjective Occupational Therapy Visit Type Type Treatment Note Visit Start Time 13:01 Visit Stop Time 13:35 Total Visit Minutes 34 Notes Per RN, pt having difficulty fully emptying bladder with high post void residuals today . This has delayed pt's d/c. Occupational Therapy Visit Comments Patient Comments A shower would feel good. Let's do it. Patient/Caregiver Goals to go home today OT Pain Assessment Pain When Pain Assessed After Treatment Pain Present Pain Present Pain Reported Location Back Intensity 4 Scale Used Numeric (1 - 10) Description Aching Acute Pain Behaviors Facial Grimacing Management Techniques Distraction Re-positioning Timing of Activity with Medications M4 OT- IP ADL's Start: 06/19/18 14:52 Freq: Status: Active Protocol: Document 06/20/18 13:35 PJM (Rec: 06/20/18 17:04 PJM [email or web address]) OT ADL-Grooming General Evaluation Grooming Ability Independent Comments OT Grooming Comments provided education re: body mechanics OT ADL-Oral Care Comments Oral Care Comments provided education re: body mechanics OT ADL-Dressing General Eval Upper Body Dressing Ability Independent Lower Body Dressing Ability Minimal Assistance Areas Needing Assistance Underpants/Brief Pants/Shorts Shoes Assistive Devices Dressing Assistive Devices Long Handled Shoe [employer] Associate 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 Pt's daughter will assist with socks and pt has velcro shoes. He can use kiln tester to manage fasteners on shoes. OT ADL-Toileting General Evaluation Toileting Ability Independent Devices Toileting Assistive Devices Urinal OT ADL-Bathing Bathing Type Bathing Type Shower General Evaluation Bathing Ability Standby Assistance Areas Needing Assistance Retrieving/Setting Up Items Comments OT Bathing Comments provided education re: body mechanics and adapted techniques for drying off with kiln tester M7 OT- IP Mobility and Balance Start: 06/19/18 14:52 Freq: Status: Active Protocol: Document 06/20/18 13:35 PJM (Rec: 06/20/18 17:[address] [facility] [id number]) OT- Bed Mobility Assessment Rolling Type of Rolling Log Rolling Roll to Right Roll to Left Level of Assistance Independent Supine to Sit Supine to Sit Assist Independent Sit to Supine Sit to Supine Assist Independent Scooting Scooting to Edge of Bed Independent OT-Transfer Assessment Sit to and From Stand Sit to and from Stand Independent Transfers Transfer Ability Independent Technique Transfer Destination Bed Car Chair Transfer Technique Stand Step Pivot Devices Transfer Assistive Devices None Comments Mobility Comments provided further education and practice re: log rolling in/ out of bed and car transfer technique OT- Gait Assessment Gait Gait Assistance Required: Independent Distance (Feet) 25 Comments Gait Ability Comments pt ambulating short distances in room without a device with no loss of balance noted OT- Balance Assessment Sitting Balance and Reactions Static Sitting Balance Ability Good Dynamic Sitting Balance Ability Good Standing Balance and Reactions Static Standing Balance Ability Good Dynamic Standing Balance Ability Fair M9 OT- IP Assessment and Plan Start: 06/19/18 14:52 Freq: Status: Active Protocol: Document 06/20/18 13:35 PJM (Rec: 06/20/18 17:[address] [facility] [id number]) OT Summary Assessment and Plan Summary Progress Towards Goals Safe For Discharge Goals Met Assessment Summary All OT education completed with pt today. Pt plans to d/c home with 24 hr assist from daughter as soon as urination issues resolved. No further OT services needed. Frequency of Treatment Frequency Of Treatment Discharge Discharge Recommendations OT Discharge Recommendations Home with 24/7 Assist
--- NOTE | 2018-06-20 13:38 | PC.NURSE ---
Changed dressing on lumbar spine incisions to coversite dressing. Mild drainage on old dressing. Skin is intact, incision edges are well approximated.
--- NOTE | 2018-06-28 07:29 | PM.DS.1 ---
History of Present Illness Date Patient Seen: 06/18/18 Chief complaint: [id number] Narrative: Patien seen by Dr. Calabrese bedside POD #2 s/p L4-5, L5S1 TLIF. Please refer to his progress note dated 06/18/18 for more information. Discharge Providers Date of admission: 06/18/18 05:50 Discharge Date: 06/28/18 Consults: 06/18/18 12:59 Consult to Occupational Therapy Evaluate & Treat Comment: Physician Instructions: Evaluate and treat Consult to Physical Therapy Evaluate & Treat Comment: Physician Instructions: Evaluate and Treat Discharge provider: Patricia Lucio PA-C Summary Hospital Course: Patient was admitted to the hospital s/p L4-5, L5-S1 TLIF by Dr. Calabrese on 06/18/18. Patient tolerated the procedure well with no major complications. They were transferred to the acute care floor where they were placed on the standard lumbar fusion post-operative pathway and protocol. They were seen by physical therapy who recommended that they be discharged home. They were stable and ready for discharge on 06/20/18. Exam Vital Signs (past 8 hours): Oxygen Delivery Method Room Air Oxygen Flow Rate 0 Narrative Exam Narrative: Please see physical exam performed by Dr. Calabrese on 06/18/18 in his progress note dated the same day. Objective Labs Result Diagrams: 06/19/18 06:20 Discharge Plan Discharge Plan Patient Disposition: Home Discharge comment: f/u 1.5 wks Discharge Med Rec/Prescriptions Prescriptions: New oxycodone-acetaminophen 5-325 mg Tablet See Rx Instructions .ROUTE .COMPLEX PRN (Reason: Pain, Moderate (4-6)) Qty: 30 RF: 0 hydroxyzine pamoate 25 mg Capsule 25 mg PO Q4HR PRN (Reason: spasms) Qty: 20 RF: 0 docusate sodium 100 mg Capsule 100 mg PO BID PRN (Reason: constipation) Qty: 30 RF: 0 celecoxib [Celebrex] 200 mg Capsule 200 mg PO BID PRN (Reason: pain) Qty: 60 RF: 0 Continued aspirin [Aspir-81] 81 mg Tablet,Delayed Release (Dr/Ec) 81 mg PO DAILY RF: 0 tamsulosin [Flomax] 0.4 mg Capsule 0.4 mg PO DAILY RF: 0 finasteride 5 mg Tablet 5 mg PO DAILY RF: 0 sumatriptan succinate [Imitrex] 50 mg Tablet 50 mg PO Q2-4H PRN (Reason: Migraine Headache) RF: 0 Provider Discharge Instructions Diet: Diet as Tolerated Activity: limited BLT 10 lbs max Skin/Wound/Dressing Care Report to your healthcare provider any signs of infection, such as:: chills, fever, night sweats, increased pain, unusual drainage and unusual redness Dressing: may change dressing and shower POD#5 Visit Report/Discharge Packet Instructions: DI for Transforaminal Lumbar Interbody Fusion Stand Alone Forms: Surgery Discharge Visit Report Forms: Congestive Heart Failure, Stroke Signs & Symptoms Discharge Data Attending Provider: Chris Calabrese Admit Date/Time: 06/18/18 05:50 Discharges patient from system. Discharge Date/Time: 06/20/18 15:42
== END 2018-06-20 15:42 | disposition home or self-care (01) | DRG 455 ==
PROVIDERS: Admitting Provider Orthopaedic Surgery; Visit Provider Orthopaedic Surgery
PROC: 0SG00AJ Fusion of Lumbar Vertebral Joint with Interbody Fusion Device, Posterior Approach, Anterior Column, Open Approach (ICD-10-PCS; principal; 2018-06-18 07:45)
DX: M48.061 Spinal stenosis, lumbar region without neurogenic claudication (principal); M41.26 Other idiopathic scoliosis, lumbar region; R00.2 Palpitations; I80.9 Phlebitis and thrombophlebitis of unspecified site; N40.1 Benign prostatic hyperplasia with lower urinary tract symptoms; N13.9 Obstructive and reflux uropathy, unspecified; Z87.891 Personal history of nicotine dependence
CPT/HCPCS: 36415; 72100; 76000; 85014; 85018; 94760; 94762; 97116; 97161; 97165; 97530; 97535; C1776; J0330; J0595; J0690; J1100; J1170; J2274; J2405; J2704; J2765; J3010